=== PATIENT | male | born 1970 | race Hispanic/Latino ===

== ENCOUNTER 2020-11-15 15:07 | Emergency (ER) | payer SELFPAY ==
[2020-11-15] MEDS ORDERED: Lidocaine 1% (PF) 30 ML VIAL ONE (16:18)
[2020-11-15] MEDS ORDERED: Boostrix 0.5 ML (Tdap) VIAL ONE (16:42)
== END 2020-11-15 17:36 | disposition home or self-care (01) ==
LOC: ERS 15:07
DX: S61.512A Laceration without foreign body of left wrist, initial encounter (principal); W22.8XXA Striking against or struck by other objects, initial encounter
CPT/HCPCS: 12001; 90471; 90715; J2001